=== PATIENT | female | born 1975 | race Caucasian/White ===

== ENCOUNTER → 2017-04-15 | Outpatient (REF) | payer BC | LOC: M LAB REF 15:54 | PROVIDERS: ATTEND Family Medicine | DX: C44.41 Basal cell carcinoma of skin of scalp and neck (principal) ==

== ENCOUNTER → 2017-06-02 | Outpatient (REF) | payer BC | LOC: M LAB REF 13:39 | PROVIDERS: ATTEND Surgery | DX: C44.519 Basal cell carcinoma of skin of other part of trunk (principal) ==

== ENCOUNTER → 2017-10-04 | Outpatient (CLI) | payer BC ==
--- NOTE | 2017-10-04 10:15 | REP ---
Clinical: Pain. Technique: AP, lateral, bilateral oblique views of the right hand. Findings: No acute fracture or dislocation. Skeletal structures, joint spaces, and surrounding soft tissues appear normal for age. No subcutaneous emphysema or radiodense foreign body. Impression: No acute fracture or dislocation. Signed by Damian Hidalgo MD 10/04/2017 10:06 A
[2017-10-04 13:18] LABS: BASO # 0.1 10^3/uL (0.0-0.2); BASO % 0.8 % (0.0-1.0); EOS % 0.3 % (0.0-3.0); IMMATURE GRANULOCYTE % 0.2 % (0-0); LYMPH # 2.1 10^3/uL (1.5-4.5); LYMPH % 32.8 % (24.0-44.0); MEAN CORPUSCULAR HEMOGLOBIN 31.7 pg (27.0-33.0); MEAN CORPUSCULAR HGB CONC 32.7 g/dl (32.0-36.5); MEAN CORPUSCULAR VOLUME 97.1 fl (80.0-96.0); MONO # 0.4 10^3/uL (0.0-0.8); MONO % 6.4 % (0.0-5.0); NEUTROPHILS # 3.7 10^3/uL (1.8-7.7); NEUTROPHILS % 59.5 % (36.0-66.0); PLATELET COUNT, AUTOMATED 256 10^3/uL (150-450); RED CELL DISTRIBUTION WIDTH 11.7 % (11.5-14.5); WHITE BLOOD COUNT 6.3 10^3/uL (4.0-10.0)
[2017-10-04 13:31] LABS: ALBUMIN 3.7 GM/DL (3.2-5.2); ALBUMIN/GLOBULIN RATIO 1.09 (1.00-1.93); ALKALINE PHOSPHATASE 41 U/L (45-117); ALT/SGPT 15 U/L (12-78); ANION GAP 5 MEQ/L (8-16); AST/SGOT 9 U/L (7-37); BILIRUBIN,TOTAL 0.4 MG/DL (0.2-1.0); BLOOD UREA NITROGEN 12 MG/DL (7-18); CARBON DIOXIDE LEVEL 29 MEQ/L (21-32); CHLORIDE LEVEL 106 MEQ/L (98-107); CREATININE FOR GFR 0.57 MG/DL (0.55-1.02); FREE T4 1.08 NG/DL (0.76-1.46); GLOMERULAR FILTRATION RATE > 60.0 (>58); GLUCOSE, FASTING 80 MG/DL (70-105); POTASSIUM SERUM 4.5 MEQ/L (3.5-5.1); SODIUM LEVEL 140 MEQ/L (136-145); TOTAL PROTEIN 7.1 GM/DL (6.4-8.2)
[2017-10-06 00:07] LABS: Lyme Disease IgG/IgM Antibodie <0.91 ISR (0.00-0.90); Lyme Disease IgM Ab Quantitati <0.80 index (0.00-0.79)
== END ==
LOC: M WUC 08:58
PROVIDERS: ATTEND Physician Assistant
DX: M25.541 Pain in joints of right hand (principal)

== ENCOUNTER → 2017-10-24 | Outpatient (CLI) | payer BC ==
--- NOTE | 2017-10-24 09:28 | REPMRS ---
Patient History The patient states she had a clinical breast exam in 09/2017. Patient has history of basal cell skin cancer at age 41. No known family history of cancer. Taking hormonal contraceptives for 21 years. Digital Woman Screen Mammo: October 24, 2017 - Exam #: [id number] Bilateral CC and MLO view(s) were taken. Technologist: Halima Pete, Technologist FINDINGS: There are scattered fibroglandular densities. Baseline examination. There is a moderate amount of residual fibroglandular tissue which is fairly symmetric. There is no dominant mass, architectural distortion, or clustered microcalcification suggestive of malignancy. Scattered lymph nodes are seen in the axillae. ASSESSMENT: BI-RADS/ACR category 2 mammogram. Benign finding(s). Recommendation Routine screening mammogram in 1 year (for women over age 40). This mammogram was interpreted with the aid of an FDA-approved computer-aided dectection system. A. Negative x-ray reports should not delay biopsy if a dominant or clinically suspicious mass is present. B. Four to eight percent of cancers are not identified by mammography. C. Adenosis and dense breast may obscure an underlying neoplasm. Electronically Signed By: Oscar De Jesus MD 10/24/17 [id number]
== END ==
LOC: M WHC 07:55
PROVIDERS: ATTEND Obstetrics & Gynecology
DX: Z12.31 Encounter for screening mammogram for malignant neoplasm of breast (principal)

== ENCOUNTER → 2019-12-04 | Outpatient (CLI) | payer OTHER ==
--- NOTE | 2019-12-04 10:33 | REPMRS ---
Patient History The patient states she had a clinical breast exam in .No known family history of cancer. Taking hormonal contraceptives for 21 years. denied. Digital Woman Screen Mammo: December 04, 2019 - Exam #: [id number] Bilateral CC and MLO view(s) were taken. Technologist: Kezia Shin, Technologist Prior study comparison: October 24, 2017, digital woman screen mammo performed at [facility]. FINDINGS: There are scattered fibroglandular densities. There is a moderate amount of residual fibroglandular tissue which is fairly symmetric. There is no interval development of dominant mass, architectural distortion, or grouped microcalcification typical of malignancy. There has been no change in the appearance of the mammogram from the prior studies. 3-D tomosynthesis shows no additional findings. Assessment: BI-RADS/ACR category 1 mammogram. Negative Mammogram. Recommendation Routine screening mammogram of both breasts in 1 year (for women over age 40). This patient's Lifetime Breast Cancer RIsk is estimated at 12.4 %. This mammogram was interpreted with the aid of an FDA-approved computer-aided dectection system. Electronically Signed By: Héctor Nick MD 12/04/19 [id number]
== END ==
LOC: M WHC 08:25
PROVIDERS: ATTEND Obstetrics & Gynecology
DX: Z12.31 Encounter for screening mammogram for malignant neoplasm of breast (principal); Z79.3 Long term (current) use of hormonal contraceptives

== ENCOUNTER → 2020-03-20 | Outpatient (REF) | payer OTHER ==
[2020-03-20 19:22] LABS: HEMATOCRIT 35.2 % (36.0-47.0); HEMOGLOBIN 11.9 g/dl (12.0-15.5); MEAN CORPUSCULAR HEMOGLOBIN 32.2 pg (27.0-33.0); MEAN CORPUSCULAR HGB CONC 33.8 g/dl (32.0-36.5); MEAN CORPUSCULAR VOLUME 95.4 fl (80.0-96.0); PLATELET COUNT, AUTOMATED 263 10^3/uL (150-450); RED BLOOD COUNT 3.69 10^6/uL (4.00-5.40); WHITE BLOOD COUNT 9.7 10^3/uL (4.0-10.0)
[2020-03-20 19:56] LABS: HCG, SERUM QUANTITATIVE 21392 MIU/ML
[2020-03-21 09:32] LABS: HEPATITIS B SURFACE ANTIGEN NEGATIVE (NEGATIVE)
[2020-03-21 10:00] LABS: HIV 1&2 SCREEN CENTAUR NEGATIVE (NEGATIVE)
[2020-03-21 10:03] LABS: HEPATITIS C VIRUS ABY INDEX 1.4 INDEX (<0.8)
== END ==
LOC: M LAB REF 17:55
PROVIDERS: ATTEND Obstetrics & Gynecology
DX: Z32.01 Encounter for pregnancy test, result positive (principal)

== ENCOUNTER → 2020-05-20 | Outpatient (REF) | payer OTHER | LOC: M LAB REF 16:19 | PROVIDERS: ATTEND Obstetrics & Gynecology | DX: Z34.82 Encounter for supervision of other normal pregnancy, second trimester (principal) ==

== ENCOUNTER → 2020-06-06 | Outpatient (CLI) | payer OTHER ==
[~2020-06-06] MED LIST: FERR325T3 PO; PRENTAB9 PO
[2020-06-06 12:28] LABS: HEMATOCRIT 32.2 % (36.0-47.0); HEMOGLOBIN 10.3 g/dl (12.0-15.5); MEAN CORPUSCULAR HEMOGLOBIN 32.6 pg (27.0-33.0); MEAN CORPUSCULAR VOLUME 101.9 fl (80.0-96.0); PLATELET COUNT, AUTOMATED 233 10^3/uL (150-450); RED BLOOD COUNT 3.16 10^6/uL (4.00-5.40); WHITE BLOOD COUNT 9.4 10^3/uL (4.0-10.0)
== END ==
LOC: M WUC 08:54
PROVIDERS: ATTEND Obstetrics & Gynecology
DX: O09.522 Supervision of elderly multigravida, second trimester (principal)

== ENCOUNTER → 2020-08-11 | Outpatient (CLI) | payer OTHER ==
--- NOTE | 2020-08-11 13:20 | REPVR ---
PROCEDURE INFORMATION: Exam: US Duplex Lower Extremity Veins, Bilateral Exam date and time: 08/11/2020 1:14 PM Age: 44 years old Clinical indication: Pain; Leg, lower; Bilateral; Additional info: Jerald leg edema w/ preg ? dvt TECHNIQUE: Imaging protocol: Real-time duplex ultrasound of the extremities with 2-D saunders scale, color Doppler flow and spectral waveform analysis with image documentation. Complete exam focused on the bilateral lower extremity veins. COMPARISON: No relevant prior studies available. FINDINGS: Right deep veins: Unremarkable. The common femoral, femoral, proximal profunda femoral and popliteal veins are patent without thrombus. Normal Doppler waveforms. Normal compressibility and/or augmentation response. Right superficial veins: Saphenofemoral junction is patent without thrombus. Left deep veins: Unremarkable. The common femoral, femoral, proximal profunda femoral and popliteal veins are patent without thrombus. Normal Doppler waveforms. Normal compressibility and/or augmentation response. Left superficial veins: Saphenofemoral junction is patent without thrombus. Soft tissues: Unremarkable. IMPRESSION: No deep venous thrombus demonstrated in either lower extremity. Electronically signed by: Kevin Hernandez On 08/11/2020 13:20:18 PM
== END ==
LOC: M RAD 12:33
PROVIDERS: ATTEND Obstetrics & Gynecology
DX: Z34.83 Encounter for supervision of other normal pregnancy, third trimester (principal); Z3A.00 Weeks of gestation of pregnancy not specified

== ENCOUNTER 2020-08-26 11:30 | Inpatient (IN) | payer OTHER ==
[2020-08-26] VITALS (9 sets, daily range): BP systolic 106–128; BP diastolic 54–79
[~2020-08-26] VITALS: Ht 172.7 cm; Wt 82.4 kg
[2020-08-26] MEDS ORDERED: PRENTAB9 PO (11:44)
[2020-08-26] MEDS ORDERED: FERR325T3 PO (11:45)
[2020-08-26 12:59] LABS: HEMATOCRIT 34.3 % (36.0-47.0); HEMOGLOBIN 11.5 g/dl (12.0-15.5); MEAN CORPUSCULAR HGB CONC 33.5 g/dl (32.0-36.5); MEAN CORPUSCULAR VOLUME 98.3 fl (80.0-96.0); PLATELET COUNT, AUTOMATED 211 10^3/uL (150-450); RED BLOOD COUNT 3.49 10^6/uL (4.00-5.40); WHITE BLOOD COUNT 9.1 10^3/uL (4.0-10.0)
[2020-08-26] MEDS ORDERED: LACTATED RINGER'S 1000 ML IV ONE (13:15)
[2020-08-26 13:24] LABS: ALT/SGPT 19 U/L (12-78); BILIRUBIN,TOTAL 0.3 MG/DL (0.2-1.0); CREATININE FOR GFR 0.44 MG/DL (0.55-1.30); GLOMERULAR FILTRATION RATE > 60.0 (>58); LDH LACTATE DEHYDROGENASE 139 U/L (84-246); URIC ACID 4.1 MG/DL (2.6-6.0)
--- NOTE | 2020-08-26 13:31 | REPVR ---
PROCEDURE INFORMATION: Exam: US , Limited Exam date and time: 08/26/2020 12:44 PM Age: 44 years old Clinical indication: Other: Decreased fhr; ; Additional info: Efw TECHNIQUE: Imaging protocol: Real-time ultrasound of the maternal uterus with image documentation. Exam focused on the clinical indication. COMPARISON: No relevant prior studies available. FINDINGS: Gestation: Single intrauterine gestation. heart rate: Heart rate measures 127 bpm. Presentation: Cephalic presentation. Placenta: Anterior grade 3 placenta. No placenta previa. Amniotic fluid index: Amniotic fluid index measures 17.2 cm. ANATOMICAL SURVEY: anatomy: No hydronephrosis. Fluid within the stomach. Fluid within the urinary bladder. Limited imaging of the spine appears within normal limits. Normal-appearing nose/lips. Lateral ventricle is normal in size. heart: Four-chamber heart. Normal appearing left ventricular outflow tract. BIOMETRY: Gestational age (AUA): Estimated gestational age is 37 weeks and 6 days. Estimated due date (AUA): Estimated date of delivery is September 10, 2020. Estimated weight: Estimated weight is 3546 g (55% based on LMP). Biparietal diameter: Biparietal diameter measures 35 weeks 6 days. Head circumference: Head circumference measures 37 weeks 1 day. Abdominal circumference: Abdominal circumference measures 40 weeks 0 days. Humerus length: Humerus length measures 38 weeks 3 days. Femur length: Femur length measures 38 weeks 0 days. DOPPLER: Umbilical artery Doppler: Umbilical artery S/D ratio measures 1.9, within normal limits. Three-vessel umbilical cord. MATERNAL: Cervix: Cervix is closed, measuring 4.5 cm in length. IMPRESSION: 1. Single viable intrauterine gestation in cephalic presentation. 2. Estimated gestational age based on this examination is 37 weeks and 6 days. PROCEDURE INFORMATION: Exam: US Biophysical Profile Without Non-Stress Test Exam date and time: 08/26/2020 12:44 PM Age: 44 years old Clinical indication: Other: Decreased fhr; ; Additional info: Efw TECHNIQUE: Imaging protocol: US biophysical profile without non-stress testing. COMPARISON: No relevant prior studies available. FINDINGS: BIOPHYSICAL PROFILE: Breathin/2 Gross body movements: 2/2 tone: 2/2 Qualitative amniotic fluid: 2/2 Biophysical Profile Score: 8/8 IMPRESSION: Biophysical profile score is 8/8. Electronically signed by: Amparo Dial On 08/26/2020 13:31:24 PM
[2020-08-26] MEDS: miSOPROStol 50 MCG 1/2 TAB (S0191) PO SCH ×3 (14:06→22:14)
[2020-08-26] MEDS: LR 1,000 ML IV SCH (18:11)
[2020-08-27] VITALS (60 sets, daily range): BP systolic 83–137; BP diastolic 46–78
[2020-08-27] MEDS ORDERED: OXYTOCIN 30 UNITS IN 0.9% NaCl 500ML IV BAG (J2590) As Ordered ONE (12:46)
[2020-08-27] MEDS ORDERED: OXYTOCIN DRIP 30 UNITS in IV 1 EA IV SCH (13:00)
[2020-08-27] MEDS ORDERED: FENTANYL 2MCG/ML ROPIVACAINE 0.2% IN 0.9% NACL 100ML IVBAG As Ordered ONE (13:46)
[2020-08-27] MEDS: LR 1,000 ML IV SCH ×2 (13:56→17:09)
[2020-08-27] MEDS ORDERED: REFRIGERATOR IV KEYS XX PRN (15:00)
[2020-08-27] MEDS ORDERED: NALOXONE INJ 0.4MG/1ML VIAL (J2310 PER 1MG) IV PRN (15:00)
[2020-08-27] MEDS ORDERED: diphenhydrAMINE 50MG/ML VIAL (J1200) IV PRN (15:00)
[2020-08-27] MEDS ORDERED: FENTANYL/ROPIVACAINE/NACL BAG 100 ML EPIDURAL SCH (15:00)
[2020-08-27] MEDS ORDERED: ONDANSETRON 4MG/2ML VIAL IV PRN (15:00)
[2020-08-27] MEDS ORDERED: EPIDURAL COMMENT XX SCH (15:00)
[2020-08-27] MEDS ORDERED: EPIDURAL/PCA KEYS XX PRN (15:00)
[2020-08-27] MEDS ORDERED: LACTATED RINGER'S 1000 ML IV PRN (15:15)
[2020-08-27] MEDS: ePHEDrine SULFATE 25 MG/5 ML(5MG/ML) SYRINGE IV PRN ×4 (15:31→18:28)
[2020-08-27] MEDS ORDERED: ePHEDrine SULFATE 25 MG/5 ML(5MG/ML) SYRINGE IV PRN (19:15)
[2020-08-28] VITALS (17 sets, daily range): BP systolic 89–129; BP diastolic 50–84
[2020-08-28] MEDS ORDERED: OXYTOCIN DRIP 30 UNITS in IV 1 EA IV SCH (03:04)
[2020-08-28 03:15] LABS: CORD GAS ABE V -7.3; CORD GAS O2 SAT V 66.3 %; CORD GAS PCO2 V 36.1 mmHg; CORD GAS PH V 7.315 UNITS; CORD GAS PO2 V 28.1 mmHg; CORD GAS SBC V 17.9 MEQ/L; CORD GAS TCO2 V 19.1 MEQ/L
[2020-08-28] MEDS ORDERED: ACETAMINOPHEN 500 MG TAB PO PRN (03:15)
[2020-08-28] MEDS ORDERED: METHYLERGONOVINE MALEATE 0.2 MG/ML VIAL (J2210) IM PRN (03:15)
[2020-08-28] MEDS ORDERED: MEASLES,MUMPS,RUBELLA VACCINE INJ (MMR-II) (90707) SC SCH (03:15)
[2020-08-28] MEDS ORDERED: RHOGAM 300 MCG (1500 IU) INJ (J2790) IM SCH (03:15)
[2020-08-28] MEDS ORDERED: DOCUSATE SODIUM 100 MG CAP PO PRN (03:15)
[2020-08-28] MEDS ORDERED: IBUPROFEN 600MG TAB PO PRN (03:15)
[2020-08-28] MEDS ORDERED: DIBUCAINE 1% OINTMENT 30GM TOP PRN (03:15)
[2020-08-28] MEDS ORDERED: ACETAMINOPHEN TAB 650MG DOSE (2X325MG) PO PRN (03:15)
[2020-08-28] MEDS ORDERED: ANUSOL HC CREAM 30GM TOP PRN (03:15)
[2020-08-28 03:16] LABS: CORD GAS ABE A -5.3; CORD GAS HCO3 A 22.8 MEQ/L; CORD GAS O2 SAT A 19.2 %; CORD GAS PCO2 A 54.7 mmHg; CORD GAS PH A 7.238 UNITS; CORD GAS PO2 A 12.8 mmHg; CORD GAS SBC A 18.4 MEQ/L; CORD GAS TCO2 A 24.5 MEQ/L
[2020-08-28] MEDS: PRENATAL VITAMINS CHEWABLE TABLET PO SCH (08:06)
[2020-08-28] MEDS ORDERED: SLF 3 ML SYR IV PRN (08:15)
[2020-08-28] MEDS ORDERED: INFLUENZA QUADRIVALENT PF VACCINE 0.5ML SYRINGE IM ONE (09:00)
--- NOTE | 2020-08-28 09:28 | HPE ---
DATE OF ADMISSION: 08/26/2020 Angela is a 44-year-old female, 4, para 2-0-1-2 with an estimated date of confinement (EDC) of 08/31/2020, estimated gestational age (EGA) 39-2/7 weeks gestation, who was seen in the office for a routine visit. She was found to have a low heart beat at 111. She has been complaining over the last 2 days with decreased movement. Her nonstress test (NST) in the office a day ago was reactive. Given her current complaint and the low heartbeat, the decision was made to admit the patient for an induction. Ultrasound also done. Biophysical profile was 06/28. Her record reviewed. Essentially unremarkable. LABORATORY: Blood type is B positive, rubella immune. Hepatitis negative, HIV negative, GC/chlamydia negative. One-hour sugar testing was within normal limits. Her GBS is negative. MEDICAL HISTORY: Denies. SURGICAL HISTORY: Skin melanoma removed in 2016. SOCIAL HISTORY: Patient is . Denies any alcohol, drugs, or cigarette smoking. REVIEW OF SYSTEMS: Unremarkable. MEDICATIONS: vitamins. ALLERGIES: No known drug allergies. PHYSICAL EXAMINATION: Normal-appearing female in no acute distress. Abdomen: Soft, nontender, nondistended. Extremities: No clubbing, cyanosis or edema. Vaginal exam: Cervix is closed to fingertip, thick, and posterior. Tracing reviewed while in labor and delivery. Category 1 tracing with heart rate in the 120s. Pelvic ultrasound: Biophysical profile 06/28. Estimated weight of 713. Amniotic fluid index (MANDIE) of 17. ASSESSMENT: 1. Intrauterine at 40-2/7 weeks gestation. 2. Low heartbeat with reactive nonstress test (NST) and biophysical profile (BPP). 3. Advanced maternal age. PLAN: Admit patient to labor and delivery. Induction process discussed. Will proceed with a Cytotec induction, since the hospital has no Cervidil available. The risks and benefits of Cytotec induction discussed with the patient in detail. Patient is aware of risks. Will continue to monitor. Anticipate delivery. DIANAD
[2020-08-28] MEDS: IBUPROFEN 800 MG TAB PO PRN ×2 (14:20→22:03)
[2020-08-28] MEDS: SLF 3 ML SYR IV SCH ×2 (14:21→22:03)
[2020-08-29 05:37] VITALS: BP 105/58
[2020-08-29] MEDS: SLF 3 ML SYR IV SCH (06:16)
[2020-08-29] MEDS: PRENATAL VITAMINS CHEWABLE TABLET PO SCH (07:57)
[2020-08-29] MEDS: IBUPROFEN 800 MG TAB PO PRN (08:14)
[2020-08-29] MEDS ORDERED: INFLUENZA QUADRIVALENT PF VACCINE 0.5ML SYRINGE IM ONE (09:00)
--- NOTE | 2020-09-02 09:54 | DN ---
DATE OF DELIVERY: 08/28/2020 DESCRIPTION OF DELIVERY: Angela is a 44-year-old female, 4, para 2, 0, 1, 2, who was admitted at 39 and 3/7 weeks gestation for induction after having low heart beat. She underwent three Cytotec, followed by artificial rupture of membranes and Pitocin induction. She did progress to fully dilate after an epidural, and delivered a live female infant in left occiput anterior position with nuchal cord times one over an intact perineum. Apgars 8 and 9, weight 6 pounds 11 ounces. Placental accreta was noted. The placenta was removed manually, then an curette was used. Good hemostasis noted. Pitocin given. Perineum, vagina, cervix inspected, and no laceration noted. Estimated blood loss 400 cc. Both mother and baby in stable condition. [facility]
== END 2020-08-29 14:00 | disposition home or self-care (01) | DRG 541 ==
LOC: M LDI 11:30 → M OBS 08-28 04:59
PROVIDERS: ADMIT Obstetrics & Gynecology; ATTEND Obstetrics & Gynecology
PROC: 3E033VJ Introduction of Other Hormone into Peripheral Vein, Percutaneous Approach (ICD-10-PCS; 2020-08-26)
PROC: 3E0DXGC Introduction of Other Therapeutic Substance into Mouth and Pharynx, External Approach (ICD-10-PCS; 2020-08-26)
PROC: 10E0XZZ Delivery of Products of Conception, External Approach (ICD-10-PCS; principal; 2020-08-28)
PROC: 10907ZC Drainage of Amniotic Fluid, Therapeutic from Products of Conception, Via Natural or Artificial Opening (ICD-10-PCS; 2020-08-28)
PROC: 10D17Z9 Manual Extraction of Products of Conception, Retained, Via Natural or Artificial Opening (ICD-10-PCS; 2020-08-28)
DX: O76 Abnormality in fetal heart rate and rhythm complicating labor and delivery (principal); O69.81X0 Labor and delivery complicated by cord around neck, without compression, not applicable or unspecified; Z37.0 Single live birth; Z3A.39 39 weeks gestation of pregnancy; O43.219 Placenta accreta, unspecified trimester; O09.523 Supervision of elderly multigravida, third trimester

== ENCOUNTER → 2021-03-11 | Outpatient (REF) | payer OTHER | LOC: M LAB REF 14:07 | PROVIDERS: ATTEND Dermatology | DX: L82.1 Other seborrheic keratosis (principal) ==

== ENCOUNTER → 2024-10-24 | Outpatient (CLI) | payer BC | LOC: M SLEEP 20:00 | PROVIDERS: ATTEND Physician Assistant | DX: G47.33 Obstructive sleep apnea (adult) (pediatric) (principal); R06.83 Snoring; R40.0 Somnolence ==